=== PATIENT | male | born 1960 | race Caucasian/White ===

== ENCOUNTER 2016-08-25 07:06 | Emergency (ER) | payer MEDICAID ==
[~2016-08-25] VITALS: Ht 170.2 cm; Wt 86.2 kg
[~2016-08-25 07:06] MED LIST: ALL100T PO; LOS50T GT; PRED-188 PO; TAMS0.4C36 PO; TRAM100T37 PO
[2016-08-25 08:49] VITALS: BP 150/96
== END 2016-08-25 09:25 | disposition home or self-care (01) ==
LOC: ER 07:08
DX: J20.9 Acute bronchitis, unspecified (principal); M10.9 Gout, unspecified; M19.90 Unspecified osteoarthritis, unspecified site; I12.0 Hypertensive chronic kidney disease with stage 5 chronic kidney disease or end stage renal disease; N18.6 End stage renal disease

== ENCOUNTER 2016-10-09 20:32 | Inpatient (IN) | payer MEDICAID ==
[~2016-10-09] VITALS: Ht 170.2 cm; Wt 81.5 kg
[~2016-10-09 20:32] MED LIST changes: +EPINEPHrine HCL 1 MG/10 ML SYRG IV ONE; +LIDOCAINE HCL 100 MG/5ML (2%) SYRG INJ IV ONE; +SODIUM BICARBONATE 8.4% INJ 50ML SYRINGE IV ONE
[2016-10-09] MEDS ORDERED: ETOMIDATE (2MG/ML) 20ML VIAL IV ONE ×2 (21:29→23:00)
[2016-10-09] MEDS ORDERED: SUCCINYLCHOLINE CHLORIDE 20 MG/ML 10ML VIAL IV ONE ×2 (21:29→23:00)
[2016-10-09] MEDS ORDERED: MIDAZOLAM DRIP 100 mg/100mL NS 100 ML IV ONE (21:31)
[2016-10-09 21:38] VITALS: BP 155/87
[2016-10-09 21:43] LABS: Basophils # (auto) 0 uL; Basophils % (auto) 0.6 % (0.0-2.0); Eosinophils # (auto) 0.1 uL; Hematocrit 51.2 % (41.0-53.0); Hemoglobin 16.5 g/dL (13.5-17.5); Lymphocytes % (auto) 25.3 % (10.0-50.0); Mean Corpuscular Hemoglobin 27.9 pg (28.0-32.0); Mean Corpuscular Hgb Conc. 32.2 g/dL (32.0-36.0); Mean Corpuscular Volume 86.7 fL (80.0-100.0); Mean Platelet Volume 9.5 fL (7.4-10.4); Monocytes # (auto) 0.6 uL; Monocytes % (auto) 8.2 % (0.0-12.0); Neutrophils % (auto) 64.9 % (37.0-80.0); Platelet Count (auto) 286 10^3/uL (140-450); White Blood Cell 7.7 10^3/uL (4.4-10.8)
[2016-10-09] MEDS ORDERED: LIDOCAINE W/ EPINEPHRINE 1% 20ML VIAL ONE (21:46)
[2016-10-09] MEDS ORDERED: ANGIOMAX 250 MG VIAL IV ONE (21:55)
[2016-10-09] MEDS ORDERED: EPINEPHrine HCL 1 MG/10 ML SYRG ONE (21:56)
[2016-10-09] MEDS ORDERED: SODIUM CHL 0.9% 50 ML ONE ×2 (21:56→22:31)
[2016-10-09] MEDS ORDERED: ATROPINE SULF 0.5 MG/5ML SYR ONE (21:56)
[2016-10-09] MEDS ORDERED: DOPamine 1600MCG/ML 250 ML IV ONE (21:56)
[2016-10-09] MEDS ORDERED: EPTIFIBATIDE INJ (2MG/ML) 10ML VIAL IV ONE (21:56)
[2016-10-09 22:01] LABS: Albumin 4.2 g/dL (3.4-5.0); Bilirubin, Total 1.1 mg/dL (0.2-1.0); Calcium 9.4 mg/dL (8.5-10.1); Potassium 3.9 mmol/L (3.5-5.1); Total Protein 7.6 g/dL (6.4-8.2)
[2016-10-09] MEDS ORDERED: IODIXANOL 320MG/ML 100ML BTL IV ONE (22:07)
[2016-10-09] MEDS ORDERED: LIDOCAINE 2%HCL (LOCAL ANESTH.) INJ 20ML MDV ONE (22:07)
[2016-10-09] MEDS ORDERED: AMIODARONE HCL (50 MG/ ML) 3 ML VIAL IV ONE (22:30)
[2016-10-09] MEDS ORDERED: PRASUGREL HCL 10 MG TAB ONE (22:38)
[2016-10-09] MEDS ORDERED: MIDAZOLAM INJECTION 20 MG in SODIUM CHL 0.9% 36 ML IV ONE (23:00)
[2016-10-09] MEDS ORDERED: HEPARIN 1,000 UNITS/ml 1ML VIAL IV ONE (23:00)
[2016-10-09] MEDS ORDERED: MORPHINE SULF INJ 2 MG/ML SYRINGE 1ML IV PRN (23:00)
[2016-10-09] MEDS ORDERED: NITROGLYCERIN 0.4 MG SL TAB SL PRN (23:00)
[2016-10-09] MEDS ORDERED: LIDOCAINE 50MG/5ML INJ 5ML SYRINGE IV ONE ×2 (23:00→23:15)
[2016-10-09] MEDS ORDERED: ASPirin 81 mg TAB PO ONE (23:00)
[2016-10-09] MEDS ORDERED: PROPOFOL 100 ML IV ONE (23:38)
[2016-10-10] VITALS (100 sets, daily range): BP systolic 94–148; BP diastolic 48–113
[2016-10-10] MEDS ORDERED: METO-169 PO (03:36)
[2016-10-10] MEDS ORDERED: LOVA20TA4 PO (03:36)
[2016-10-10] MEDS ORDERED: AML5T PO (03:36)
[2016-10-10] MEDS ORDERED: METH750T3 PO ×2 (03:36)
[2016-10-10] MEDS ORDERED: GEMF600T3 PO (03:36)
[2016-10-10] MEDS ORDERED: FEBU80TA PO (03:36)
[2016-10-10] MEDS: PROPOFOL 100 ML IV SCH ×3 (05:06→18:47)
[2016-10-10] MEDS: DOPamine 1600MCG/ML 250 ML IV SCH ×2 (05:06→16:39)
[2016-10-10 06:48] LABS: Basophils # (auto) 0 uL; Basophils % (auto) 0.1 % (0.0-2.0); Eosinophils # (auto) 0 uL; Eosinophils % (auto) 0.3 % (0.0-7.0); Hematocrit 49.1 % (41.0-53.0); Hemoglobin 15.9 g/dL (13.5-17.5); Lymphocytes # (auto) 0.7 uL; Lymphocytes % (auto) 8.7 % (10.0-50.0); Mean Corpuscular Hgb Conc. 32.3 g/dL (32.0-36.0); Mean Corpuscular Volume 86.6 fL (80.0-100.0); Mean Platelet Volume 9.2 fL (7.4-10.4); Monocytes % (auto) 12.5 % (0.0-12.0); Neutrophils # (auto) 6.3 uL; Neutrophils % (auto) 78.4 % (37.0-80.0); Platelet Count (auto) 277 10^3/uL (140-450); White Blood Cell 8.1 10^3/uL (4.4-10.8)
[2016-10-10 07:09] LABS: Albumin 3.4 g/dL (3.4-5.0); Calcium 8.6 mg/dL (8.5-10.1); Magnesium 2.5 mg/dL (1.6-2.6); Potassium 3.5 mmol/L (3.5-5.1)
[2016-10-10 07:25] LABS: Bilirubin, Total 0.8 mg/dL (0.2-1.0); Total Protein 6.4 g/dL (6.4-8.2)
[2016-10-10] MEDS: PRASUGREL HCL 10 MG TAB PO SCH (09:25)
[2016-10-10] MEDS: ASPirin 81 mg TAB PO SCH (09:25)
[2016-10-10] MEDS: AMIODARONE HCL 200 MG TAB PO SCH ×2 (09:26→21:36)
[2016-10-10] MEDS ORDERED: MIDAZOLAM HCL 1MG/1ML-2 ML VIAL IV ONE (12:45)
[2016-10-10] MEDS ORDERED: ACETYLCYSTEINE 10 %(100MG/ML) SOL 4ML NEB SCH (14:00)
[2016-10-10] MEDS ORDERED: LOSA25TA9 PO (14:21)
[2016-10-10] MEDS ORDERED: ACE3T PO (14:26)
[2016-10-10] MEDS ORDERED: ACETYLCYSTEINE 10 %(100MG/ML) SOL 4ML ONE (14:40)
[2016-10-10] MEDS: ALBUTEROL SULF 2.5 MG/0.5ML(0.5%) NEB SOLN NEB SCH ×3 (15:03→22:27)
[2016-10-10] MEDS: IPRATROPIUM BROM 0.5 MG/2.5ML INH SOL NEB SCH ×3 (15:03→22:25)
[2016-10-10] MEDS ORDERED: ACETAMINOPHEN 500 MG TAB PO PRN (17:00)
[2016-10-10] MEDS ORDERED: CARVEDILOL 3.125 MG TAB PO ONE (17:15)
[2016-10-10] MEDS ORDERED: ARTIFICIAL TEARS 15ml EACHEYE PRN (18:15)
[2016-10-10] MEDS: TAMSULOSIN HYDROCHLORIDE 0.4 MG CAP PO SCH (18:59)
[2016-10-10] MEDS ORDERED: LISINOPRIL 5 MG TAB PO ONE (19:15)
[2016-10-10] MEDS ORDERED: ALLOPURINOL 100 MG TAB PO ONE (19:15)
[2016-10-10] MEDS: ATORVASTATIN 20 MG TAB PO SCH (21:36)
[2016-10-10] MEDS: CARVEDILOL 3.125 MG TAB PO SCH (22:00)
[2016-10-10] MEDS: ACETYLCYSTEINE ORAL for CIN 20%(200MG/ML) 4ML PO SCH (22:02)
[2016-10-10] MEDS: ACETYLCYSTEINE 10 %(100MG/ML) SOL 4ML NEB SCH (22:28)
[2016-10-11] VITALS (44 sets, daily range): BP systolic 89–125; BP diastolic 51–81
[2016-10-11] MEDS: ALBUTEROL SULF 2.5 MG/0.5ML(0.5%) NEB SOLN NEB SCH ×6 (02:50→22:31)
[2016-10-11] MEDS: IPRATROPIUM BROM 0.5 MG/2.5ML INH SOL NEB SCH ×6 (02:50→22:31)
[2016-10-11 03:48] LABS: Basophils # (auto) 0 uL; Basophils % (auto) 0.4 % (0.0-2.0); Eosinophils # (auto) 0.1 uL; Hematocrit 44.5 % (41.0-53.0); Hemoglobin 14.5 g/dL (13.5-17.5); Lymphocytes # (auto) 1.2 uL; Lymphocytes % (auto) 14.6 % (10.0-50.0); Mean Corpuscular Hemoglobin 28.5 pg (28.0-32.0); Mean Corpuscular Hgb Conc. 32.6 g/dL (32.0-36.0); Mean Corpuscular Volume 87.4 fL (80.0-100.0); Mean Platelet Volume 9.2 fL (7.4-10.4); Monocytes # (auto) 0.9 uL; Monocytes % (auto) 10.9 % (0.0-12.0); Neutrophils # (auto) 6.2 uL; Neutrophils % (auto) 73.1 % (37.0-80.0); Platelet Count (auto) 231 10^3/uL (140-450); Red Cell Distribution Width 13.2 % (11.6-16.0); White Blood Cell 8.4 10^3/uL (4.4-10.8)
[2016-10-11 04:26] LABS: Albumin 3.2 g/dL (3.4-5.0); BUN/Creatinine Ratio 15.2; Bilirubin, Total 0.8 mg/dL (0.2-1.0); Calcium 8.3 mg/dL (8.5-10.1); Potassium 3.8 mmol/L (3.5-5.1)
[2016-10-11] MEDS: ACETYLCYSTEINE 10 %(100MG/ML) SOL 4ML NEB SCH ×3 (06:50→22:31)
[2016-10-11] MEDS: DOPamine 1600MCG/ML 250 ML IV SCH (07:18)
[2016-10-11] MEDS: PRASUGREL HCL 10 MG TAB PO SCH (09:27)
[2016-10-11] MEDS: AMIODARONE HCL 200 MG TAB PO SCH ×2 (09:28→21:51)
[2016-10-11] MEDS: ASPirin 81 mg TAB PO SCH (09:28)
[2016-10-11] MEDS: LISINOPRIL 5 MG TAB PO SCH (10:00)
[2016-10-11] MEDS: CARVEDILOL 3.125 MG TAB PO SCH ×2 (10:00→21:52)
[2016-10-11] MEDS: ACETYLCYSTEINE ORAL for CIN 20%(200MG/ML) 4ML PO SCH ×2 (10:00→21:53)
[2016-10-11] MEDS ORDERED: ALLOPURINOL 100 MG TAB PO SCH (10:00)
[2016-10-11] MEDS: TAMSULOSIN HYDROCHLORIDE 0.4 MG CAP PO SCH (18:00)
[2016-10-11] MEDS: ATORVASTATIN 20 MG TAB PO SCH (21:51)
[2016-10-12] MEDS: ALBUTEROL SULF 2.5 MG/0.5ML(0.5%) NEB SOLN NEB SCH ×3 (01:58→10:43)
[2016-10-12] MEDS: IPRATROPIUM BROM 0.5 MG/2.5ML INH SOL NEB SCH ×3 (01:58→10:43)
[2016-10-12 05:00] VITALS: BP 112/66
[2016-10-12 06:06] LABS: Potassium 4.1 mmol/L (3.5-5.1)
[2016-10-12 06:08] LABS: BUN/Creatinine Ratio 13.4
[2016-10-12] MEDS: ACETYLCYSTEINE 10 %(100MG/ML) SOL 4ML NEB SCH (07:13)
[2016-10-12 08:48] VITALS: BP 129/71
[2016-10-12] MEDS ORDERED: COLCPOW2 PO (09:03)
[2016-10-12] MEDS: PRASUGREL HCL 10 MG TAB PO SCH (09:29)
[2016-10-12] MEDS: ASPirin 81 mg TAB PO SCH (09:29)
[2016-10-12] MEDS: CARVEDILOL 3.125 MG TAB PO SCH (09:30)
[2016-10-12] MEDS ORDERED: COLCHICINE 0.6 MG TAB/CAP PO ONE (09:30)
[2016-10-12] MEDS: AMIODARONE HCL 200 MG TAB PO SCH (09:30)
[2016-10-12] MEDS: LISINOPRIL 5 MG TAB PO SCH (09:31)
[2016-10-12] MEDS ORDERED: [UNRECOGNIZED DRUG - OTHER] PO SCH (10:00)
[2016-10-12] MEDS ORDERED: PATIENTS OWN MEDICATION PO SCH ×2 (10:00)
[2016-10-12] MEDS: ACETYLCYSTEINE ORAL for CIN 20%(200MG/ML) 4ML PO SCH (10:00)
[2016-10-12 12:17] VITALS: BP 129/71
[2016-10-12 13:00] VITALS: BP 135/79
== END 2016-10-12 14:00 | disposition home or self-care (01) | DRG 174 ==
LOC: ER 20:34 → CATH 1 21:47 → ICU WEST 21:48 → TELE-CENTR 10-11 11:40
PROVIDERS: ADMIT Internal Medicine; ATTEND Internal Medicine
PROC: 027034Z Dilation of Coronary Artery, One Artery with Drug-eluting Intraluminal Device, Percutaneous Approach (ICD-10-PCS; 2016-10-09)
PROC: 5A12012 Performance of Cardiac Output, Single, Manual (ICD-10-PCS; 2016-10-09)
PROC: B2111ZZ Fluoroscopy of Multiple Coronary Arteries using Low Osmolar Contrast (ICD-10-PCS; 2016-10-09)
PROC: 4A023N7 Measurement of Cardiac Sampling and Pressure, Left Heart, Percutaneous Approach (ICD-10-PCS; 2016-10-09)
PROC: B41F1ZZ Fluoroscopy of Right Lower Extremity Arteries using Low Osmolar Contrast (ICD-10-PCS; 2016-10-09)
PROC: 5A1935Z Respiratory Ventilation, Less than 24 Consecutive Hours (ICD-10-PCS; principal; 2016-10-10)
PROC: 0BH17EZ Insertion of Endotracheal Airway into Trachea, Via Natural or Artificial Opening (ICD-10-PCS; 2016-10-10)
DX: I21.3 ST elevation (STEMI) myocardial infarction of unspecified site (principal); J96.01 Acute respiratory failure with hypoxia; I49.01 Ventricular fibrillation; N17.9 Acute kidney failure, unspecified; I95.9 Hypotension, unspecified; N18.6 End stage renal disease; E66.01 Morbid (severe) obesity due to excess calories; I13.11 Hypertensive heart and chronic kidney disease without heart failure, with stage 5 chronic kidney disease, or end stage renal disease; I48.91 Unspecified atrial fibrillation; I46.9 Cardiac arrest, cause unspecified; I25.10 Atherosclerotic heart disease of native coronary artery without angina pectoris; E78.5 Hyperlipidemia, unspecified; M10.9 Gout, unspecified; Z68.29 Body mass index [BMI] 29.0-29.9, adult; E78.00 Pure hypercholesterolemia, unspecified; J45.909 Unspecified asthma, uncomplicated; M19.90 Unspecified osteoarthritis, unspecified site; N40.0 Benign prostatic hyperplasia without lower urinary tract symptoms; Z82.49 Family history of ischemic heart disease and other diseases of the circulatory system; Z83.3 Family history of diabetes mellitus; Z86.79 Personal history of other diseases of the circulatory system; Z95.5 Presence of coronary angioplasty implant and graft; Z68.28 Body mass index [BMI] 28.0-28.9, adult; Z85.9 Personal history of malignant neoplasm, unspecified; Z71.89 Other specified counseling; Z88.8 Allergy status to other drugs, medicaments and biological substances
CPT/HCPCS: 31500; 51702; 92928; 92950; 93458; 96365; 96375; 99291; G0278; 36415; 36600; 71010; 80048; 80053; 80061; 82805; 82962; 83036; 83735; 84484; 85025; 87081; 93005; 93306; 94002; 94003; 94640; 99152; C1874; J0330; J0461; J2250; J2704; Q9967

== ENCOUNTER 2017-11-18 09:42 | Emergency (ER) | payer MEDICAID ==
[~2017-11-18] VITALS: Ht 172.7 cm; Wt 85.3 kg
[~2017-11-18 09:42] MED LIST changes: +ACE3T PO; -ALL100T PO; +ASPI81CH43 GT; +ATOR40TA52 PO; +COLCPOW2 PO; -EPINEPHrine HCL 1 MG/10 ML SYRG IV ONE; +FEBU80TA PO; +GEMF600T3 PO; -LIDOCAINE HCL 100 MG/5ML (2%) SYRG INJ IV ONE; +LORA-622 PO; -LOS50T GT; +LOSA25TA9 PO; +LOVA20TA4 PO; +PRAS10TA6 PO; -SODIUM BICARBONATE 8.4% INJ 50ML SYRINGE IV ONE; -TRAM100T37 PO
[2017-11-18 10:41] LABS: Basophils # (auto) 0 uL; Basophils % (auto) 0.4 % (0.0-2.0); Eosinophils # (auto) 0 uL; Eosinophils % (auto) 0.2 % (0.0-7.0); Hematocrit 50.5 % (41.0-53.0); Hemoglobin 17.1 g/dL (13.5-17.5); Lymphocytes # (auto) 0.8 uL; Lymphocytes % (auto) 10.4 % (10.0-50.0); Mean Corpuscular Hemoglobin 29.5 pg (28.0-32.0); Mean Corpuscular Hgb Conc. 33.9 g/dL (32.0-36.0); Mean Corpuscular Volume 87.1 fL (80.0-100.0); Monocytes # (auto) 0.4 uL; Monocytes % (auto) 4.6 % (0.0-12.0); Neutrophils # (auto) 6.4 uL; Neutrophils % (auto) 84.4 % (37.0-80.0); Platelet Count (auto) 243 10^3/uL (140-450); Red Blood Cells 5.79 10^6/uL (4.5-5.90); Red Cell Distribution Width 13.3 % (11.8-14.3); White Blood Cell 7.6 10^3/uL (4.4-10.8)
[2017-11-18 10:59] LABS: Alanine Aminotransferase 29 U/L (16-61); Anion Gap 8 (5-15); Aspartate Aminotransferase 18 U/L (15-37); BUN/Creatinine Ratio 16.9; Blood Urea Nitrogen 27 mg/dL (7-18); Calcium 9.2 mg/dL (8.5-10.1); Carbon Dioxide 24 mmol/L (21-32); Chloride 112 mmol/L (98-107); GFR African American 57 mL/min; GFR Non-African American 47 mL/min; Glucose 128 mg/dL (74-106); Potassium 4.2 mmol/L (3.5-5.1); Sodium 144 mmol/L (136-145)
[2017-11-18 10:59] LABS: Urine Bacteria NONE SEEN /hpf (None Seen); Urine Blood Negative /uL (Negative); Urine Mucus FEW (None Seen); Urine Specific Gravity 1.023 (1.001-1.035); Urine WBC 2 /hpf (0 - 3)
[2017-11-18 11:02] LABS: Alkaline Phosphatase 86 U/L (45-117); Bilirubin, Total 1.3 mg/dL (0.2-1.0); Total Protein 7.4 g/dL (6.4-8.2)
[2017-11-18] MEDS ORDERED: SODIUM CHLORIDE 0.9% 1,000 ML IV ONE (17:12)
[2017-11-18] MEDS ORDERED: ACETAMINOPHEN 500 MG TAB PO ONE ×2 (22:25→22:30)
[2017-11-18 22:45] VITALS: BP 156/95
== END 2017-11-19 00:21 | disposition home or self-care (01) ==
LOC: ER 09:42
DX: R51 Headache (principal); I12.0 Hypertensive chronic kidney disease with stage 5 chronic kidney disease or end stage renal disease; N18.6 End stage renal disease; K21.9 Gastro-esophageal reflux disease without esophagitis; E78.5 Hyperlipidemia, unspecified; M10.9 Gout, unspecified; Z98.61 Coronary angioplasty status
CPT/HCPCS: 36415; 70450; 80053; 81001; 83735; 84443; 84484; 85025; 93005; 96360; 99285; J7030

== ENCOUNTER 2018-03-31 16:43 | Emergency (ER) | payer MEDICAID ==
[2018-03-31 17:28] LABS: Basophils # (auto) 0 uL; Basophils % (auto) 0.6 % (0.0-2.0); Eosinophils # (auto) 0.1 uL; Eosinophils % (auto) 1.5 % (0.0-7.0); Hematocrit 47.8 % (41.0-53.0); Hemoglobin 16.1 g/dL (13.5-17.5); Lymphocytes # (auto) 1.1 uL; Mean Corpuscular Hemoglobin 29.8 pg (28.0-32.0); Mean Corpuscular Hgb Conc. 33.6 g/dL (32.0-36.0); Mean Corpuscular Volume 88.7 fL (80.0-100.0); Monocytes # (auto) 0.5 uL; Monocytes % (auto) 8.4 % (0.0-12.0); Neutrophils # (auto) 4.2 uL; Neutrophils % (auto) 70.5 % (37.0-80.0); Platelet Count (auto) 202 10^3/uL (140-450); Red Blood Cells 5.39 10^6/uL (4.5-5.90); Red Cell Distribution Width 13.1 % (11.8-14.3)
[2018-03-31 17:46] LABS: Alanine Aminotransferase 28 U/L (16-61); Albumin 3.6 g/dL (3.4-5.0); Anion Gap 10 (5-15); Aspartate Aminotransferase 16 U/L (15-37); BUN/Creatinine Ratio 18.6; Blood Urea Nitrogen 32 mg/dL (7-18); Calcium 8.8 mg/dL (8.5-10.1); Carbon Dioxide 24 mmol/L (21-32); Chloride 115 mmol/L (98-107); GFR African American 53 mL/min; GFR Non-African American 44 mL/min; Glucose 96 mg/dL (74-106); Potassium 4.5 mmol/L (3.5-5.1); Sodium 149 mmol/L (136-145)
[2018-03-31 17:50] LABS: Alkaline Phosphatase 83 U/L (45-117); Bilirubin, Total 0.9 mg/dL (0.2-1.0)
[2018-03-31 23:30] VITALS: BP 137/88
== END 2018-04-01 00:45 | disposition left against medical advice (07) ==
LOC: ER 16:48
DX: R07.9 Chest pain, unspecified (principal); Z53.29 Procedure and treatment not carried out because of patient's decision for other reasons
CPT/HCPCS: 36415; 71045; 80053; 84484; 85025; 93005

== ENCOUNTER 2018-04-24 12:03 | Inpatient (IN) | payer MEDICAID ==
[~2018-04-24] VITALS: Ht 172.7 cm; Wt 87.4 kg
[2018-04-24] MEDS ORDERED: PANT20TA59 (12:29)
[2018-04-24 13:21] LABS: Urine Bacteria NONE SEEN /hpf (None Seen); Urine Blood Negative /uL (Negative); Urine Specific Gravity 1.015 (1.001-1.035); Urine WBC 1 /hpf (0 - 3)
[2018-04-24] MEDS ORDERED: KETOROLAC TROMETH 30 MG/ML 1ML VIAL IV ONE (13:30)
[2018-04-24] MEDS ORDERED: cefTRIAXone 1GM/10ml IVPUSH 10 ML IV ONE (13:30)
[2018-04-24 13:50] LABS: Basophils # (auto) 0 uL; Basophils % (auto) 0.5 % (0.0-2.0); Eosinophils # (auto) 0.1 uL; Eosinophils % (auto) 0.8 % (0.0-7.0); Hematocrit 47.2 % (41.0-53.0); Hemoglobin 16.2 g/dL (13.5-17.5); Lymphocytes # (auto) 0.8 uL; Lymphocytes % (auto) 10.6 % (10.0-50.0); Mean Corpuscular Hemoglobin 30.1 pg (28.0-32.0); Mean Corpuscular Hgb Conc. 34.3 g/dL (32.0-36.0); Mean Corpuscular Volume 87.8 fL (80.0-100.0); Monocytes # (auto) 0.8 uL; Monocytes % (auto) 10.3 % (0.0-12.0); Neutrophils # (auto) 5.9 uL; Neutrophils % (auto) 77.8 % (37.0-80.0); Platelet Count (auto) 187 10^3/uL (140-450); Red Blood Cells 5.38 10^6/uL (4.5-5.90); Red Cell Distribution Width 12.7 % (11.8-14.3); White Blood Cell 7.6 10^3/uL (4.4-10.8)
[2018-04-24 14:02] LABS: Alanine Aminotransferase 27 U/L (16-61); Albumin 3.7 g/dL (3.4-5.0); Anion Gap 10 (5-15); Aspartate Aminotransferase 15 U/L (15-37); BUN/Creatinine Ratio 13.9; Blood Urea Nitrogen 23 mg/dL (7-18); Calcium 8.8 mg/dL (8.5-10.1); Carbon Dioxide 25 mmol/L (21-32); Chloride 108 mmol/L (98-107); GFR African American 55 mL/min; GFR Non-African American 46 mL/min; Glucose 102 mg/dL (74-106); Potassium 3.7 mmol/L (3.5-5.1); Sodium 143 mmol/L (136-145)
[2018-04-24 14:10] LABS: Alkaline Phosphatase 83 U/L (45-117); Total Protein 7.4 g/dL (6.4-8.2)
[2018-04-24] MEDS ORDERED: ACETAMINOPHEN/CODEINE#3 (300/30mg) TAB PO PRN (16:30)
[2018-04-24] MEDS ORDERED: BACLOFEN 10 MG TAB PO PRN (16:45)
[2018-04-24] MEDS ORDERED: DOCUSATE SOD 100 MG CAP PO PRN (16:45)
[2018-04-24] MEDS ORDERED: ONDANSETRON HCL 4 MG/2 ML VIAL IV PRN (16:45)
[2018-04-24] MEDS ORDERED: TEMAZEPAM 15 MG CAP PO PRN (16:45)
[2018-04-24] MEDS: CLINDAMYCIN 300MG IV 50 ML IV SCH (21:55)
[2018-04-24] MEDS: ATORVASTATIN 20 MG TAB PO SCH (21:55)
[2018-04-24] MEDS: COLCHICINE 0.6 MG TAB PO SCH (21:55)
[2018-04-24] MEDS: SODIUM CHLOR 0.9% PF (SALINE LOCK) 10ML VIAL/SYR IV SCH (21:55)
[2018-04-24] MEDS: ASCORBIC ACID 500 MG TAB PO SCH (21:56)
[2018-04-24] MEDS: FAMOTIDINE 20 MG TAB PO SCH (21:56)
[2018-04-24 22:00] VITALS: BP 143/87
[2018-04-24] MEDS: MORPHINE SULF INJ 2 MG/ML SYRINGE 1ML IV PRN (22:15)
[2018-04-25] MEDS: ACETAMINOPHEN 325 MG TAB PO PRN ×2 (00:04→23:21)
[2018-04-25 05:20] VITALS: BP 128/72
[2018-04-25] MEDS: SODIUM CHLOR 0.9% PF (SALINE LOCK) 10ML VIAL/SYR IV SCH ×3 (05:52→22:56)
[2018-04-25] MEDS: CLINDAMYCIN 300MG IV 50 ML IV SCH ×3 (05:52→22:56)
[2018-04-25 05:57] LABS: Basophils # (auto) 0 uL; Basophils % (auto) 0.4 % (0.0-2.0); Eosinophils # (auto) 0.2 uL; Eosinophils % (auto) 1.9 % (0.0-7.0); Hematocrit 41.6 % (41.0-53.0); Hemoglobin 14.8 g/dL (13.5-17.5); Lymphocytes # (auto) 1.3 uL; Lymphocytes % (auto) 15.2 % (10.0-50.0); Mean Corpuscular Hgb Conc. 35.6 g/dL (32.0-36.0); Mean Corpuscular Volume 87.3 fL (80.0-100.0); Monocytes # (auto) 0.9 uL; Monocytes % (auto) 10.6 % (0.0-12.0); Neutrophils # (auto) 5.9 uL; Neutrophils % (auto) 71.9 % (37.0-80.0); Platelet Count (auto) 187 10^3/uL (140-450); Red Blood Cells 4.77 10^6/uL (4.5-5.90); Red Cell Distribution Width 12.8 % (11.8-14.3); White Blood Cell 8.3 10^3/uL (4.4-10.8)
[2018-04-25 06:25] LABS: Albumin 3.1 g/dL (3.4-5.0); BUN/Creatinine Ratio 14.1; Bilirubin, Total 0.7 mg/dL (0.2-1.0); Calcium 8.2 mg/dL (8.5-10.1); Potassium 3.8 mmol/L (3.5-5.1); Total Protein 6.2 g/dL (6.4-8.2)
[2018-04-25] MEDS: cefTRIAXone 1GM/10ml IVPUSH 10 ML IV SCH (09:02)
[2018-04-25] MEDS: MORPHINE SULF INJ 2 MG/ML SYRINGE 1ML IV PRN (09:03)
[2018-04-25 09:16] VITALS: BP 133/75
[2018-04-25] MEDS: LORATADINE 10 MG TAB PO SCH ×2 (10:00→10:25)
[2018-04-25] MEDS: FAMOTIDINE 20 MG TAB PO SCH ×3 (10:00→22:00)
[2018-04-25] MEDS: COLCHICINE 0.6 MG TAB PO SCH ×2 (10:00→22:00)
[2018-04-25] MEDS: PANTOPRAZOLE 40 MG TAB PO SCH ×2 (10:00→10:26)
[2018-04-25] MEDS: MULTIPLE VITAMIN TAB PO SCH (10:25)
[2018-04-25] MEDS: ZINC SULFATE 220mg CAP or TAB PO SCH (10:25)
[2018-04-25] MEDS: PRASUGREL HCL 10 MG TAB PO SCH (10:25)
[2018-04-25] MEDS: ASPirin-EC 81 mg tab PO SCH (10:25)
[2018-04-25] MEDS: CHOLECALCIFEROL (VITD3) 1,000 UNIT TAB PO SCH (10:26)
[2018-04-25] MEDS: ASCORBIC ACID 500 MG TAB PO SCH ×2 (10:26→22:00)
[2018-04-25] MEDS: LOSARTAN POTASSIUM 50 MG TAB PO SCH (10:26)
[2018-04-25 12:32] VITALS: BP 141/91
[2018-04-25] MEDS: ULORIC 80 MG PO SCH (12:50)
[2018-04-25 17:05] VITALS: BP 145/88
[2018-04-25 22:10] VITALS: BP 144/90
[2018-04-25] MEDS: ATORVASTATIN 20 MG TAB PO SCH (22:57)
[2018-04-25] MEDS: DAKINS QUARTER STR 0.125% (NaHypochlorite) 473 ML TOPICAL SOL TOP SCH (22:57)
[2018-04-25] MEDS: SILVER SULFADIAZINE 1 % TOPICAL CREAM 50GM TOP SCH (22:58)
[2018-04-26 05:00] VITALS: BP 143/91
[2018-04-26] MEDS: SODIUM CHLOR 0.9% PF (SALINE LOCK) 10ML VIAL/SYR IV SCH ×3 (06:08→22:52)
[2018-04-26] MEDS: CLINDAMYCIN 300MG IV 50 ML IV SCH ×3 (06:08→22:52)
[2018-04-26 06:40] LABS: Basophils # (auto) 0 uL; Basophils % (auto) 0.5 % (0.0-2.0); Eosinophils # (auto) 0.2 uL; Eosinophils % (auto) 2.3 % (0.0-7.0); Hematocrit 46.5 % (41.0-53.0); Hemoglobin 14.8 g/dL (13.5-17.5); Lymphocytes # (auto) 1.2 uL; Lymphocytes % (auto) 17.7 % (10.0-50.0); Mean Corpuscular Hemoglobin 29.7 pg (28.0-32.0); Mean Corpuscular Hgb Conc. 31.9 g/dL (32.0-36.0); Mean Corpuscular Volume 93.4 fL (80.0-100.0); Monocytes # (auto) 0.6 uL; Monocytes % (auto) 8.6 % (0.0-12.0); Neutrophils # (auto) 4.7 uL; Neutrophils % (auto) 70.9 % (37.0-80.0); Nucleated Red Blood Cells % 0.1 %; Platelet Count (auto) 179 10^3/uL (140-450); Red Blood Cells 4.98 10^6/uL (4.5-5.90); Red Cell Distribution Width 13.6 % (11.8-14.3); White Blood Cell 6.7 10^3/uL (4.4-10.8)
[2018-04-26 07:16] LABS: BUN/Creatinine Ratio 12.3; Calcium 8.4 mg/dL (8.5-10.1); Potassium 3.8 mmol/L (3.5-5.1)
[2018-04-26 09:00] VITALS: BP 140/83
[2018-04-26] MEDS: ULORIC 80 MG PO SCH (10:00)
[2018-04-26] MEDS: LORATADINE 10 MG TAB PO SCH (10:00)
[2018-04-26] MEDS: DAKINS QUARTER STR 0.125% (NaHypochlorite) 473 ML TOPICAL SOL TOP SCH ×2 (10:00→22:00)
[2018-04-26] MEDS: FAMOTIDINE 20 MG TAB PO SCH ×2 (10:00→22:00)
[2018-04-26] MEDS: COLCHICINE 0.6 MG TAB PO SCH ×2 (10:00→22:00)
[2018-04-26] MEDS: SILVER SULFADIAZINE 1 % TOPICAL CREAM 50GM TOP SCH ×2 (10:00→22:00)
[2018-04-26] MEDS: PANTOPRAZOLE 40 MG TAB PO SCH (10:00)
[2018-04-26] MEDS: CHOLECALCIFEROL (VITD3) 1,000 UNIT TAB PO SCH (10:56)
[2018-04-26] MEDS: cefTRIAXone 1GM/10ml IVPUSH 10 ML IV SCH (10:56)
[2018-04-26] MEDS: ZINC SULFATE 220mg CAP or TAB PO SCH (10:56)
[2018-04-26] MEDS: PRASUGREL HCL 10 MG TAB PO SCH (10:56)
[2018-04-26] MEDS: ASCORBIC ACID 500 MG TAB PO SCH ×2 (10:57→22:00)
[2018-04-26] MEDS: LOSARTAN POTASSIUM 50 MG TAB PO SCH (10:57)
[2018-04-26] MEDS: MULTIPLE VITAMIN TAB PO SCH (10:57)
[2018-04-26] MEDS: ASPirin-EC 81 mg tab PO SCH (10:57)
[2018-04-26 13:00] VITALS: BP 172/100
[2018-04-26 17:40] VITALS: BP 156/89
[2018-04-26 21:30] VITALS: BP 158/101
[2018-04-26] MEDS: ATORVASTATIN 20 MG TAB PO SCH (22:52)
[2018-04-27 05:00] VITALS: BP 129/83
[2018-04-27 06:20] LABS: Basophils # (auto) 0 uL; Basophils % (auto) 0.7 % (0.0-2.0); Eosinophils # (auto) 0.2 uL; Eosinophils % (auto) 2.7 % (0.0-7.0); Hematocrit 43.4 % (41.0-53.0); Lymphocytes # (auto) 1.1 uL; Lymphocytes % (auto) 17.8 % (10.0-50.0); Mean Corpuscular Hemoglobin 30.3 pg (28.0-32.0); Mean Corpuscular Hgb Conc. 34.6 g/dL (32.0-36.0); Mean Corpuscular Volume 87.5 fL (80.0-100.0); Monocytes # (auto) 0.6 uL; Monocytes % (auto) 9.2 % (0.0-12.0); Neutrophils # (auto) 4.4 uL; Neutrophils % (auto) 69.6 % (37.0-80.0); Platelet Count (auto) 192 10^3/uL (140-450); Red Blood Cells 4.96 10^6/uL (4.5-5.90); Red Cell Distribution Width 12.9 % (11.8-14.3); White Blood Cell 6.3 10^3/uL (4.4-10.8)
[2018-04-27 06:25] LABS: BUN/Creatinine Ratio 12.4; Calcium 8.9 mg/dL (8.5-10.1)
[2018-04-27] MEDS: SODIUM CHLOR 0.9% PF (SALINE LOCK) 10ML VIAL/SYR IV SCH (06:35)
[2018-04-27] MEDS: CLINDAMYCIN 300MG IV 50 ML IV SCH (06:35)
[2018-04-27 08:13] VITALS: BP 137/90
[2018-04-27] MEDS: PANTOPRAZOLE 40 MG TAB PO SCH (09:32)
[2018-04-27] MEDS: cefTRIAXone 1GM/10ml IVPUSH 10 ML IV SCH (09:32)
[2018-04-27] MEDS: ASCORBIC ACID 500 MG TAB PO SCH (09:33)
[2018-04-27] MEDS: MULTIPLE VITAMIN TAB PO SCH (09:33)
[2018-04-27] MEDS: FAMOTIDINE 20 MG TAB PO SCH (09:33)
[2018-04-27] MEDS: CHOLECALCIFEROL (VITD3) 1,000 UNIT TAB PO SCH (09:33)
[2018-04-27] MEDS: LORATADINE 10 MG TAB PO SCH (09:34)
[2018-04-27] MEDS: COLCHICINE 0.6 MG TAB PO SCH (09:34)
[2018-04-27] MEDS: ZINC SULFATE 220mg CAP or TAB PO SCH (09:34)
[2018-04-27] MEDS: LOSARTAN POTASSIUM 50 MG TAB PO SCH (09:34)
[2018-04-27] MEDS: ASPirin-EC 81 mg tab PO SCH (09:35)
[2018-04-27] MEDS: ULORIC 80 MG PO SCH (10:02)
[2018-04-27] MEDS: PRASUGREL HCL 10 MG TAB PO SCH (10:02)
[2018-04-27] MEDS: DAKINS QUARTER STR 0.125% (NaHypochlorite) 473 ML TOPICAL SOL TOP SCH (10:03)
[2018-04-27 11:38] VITALS: BP 145/88
== END 2018-04-27 12:02 | disposition home or self-care (01) | DRG 383 ==
LOC: ER 12:03 → OVERFLOW 12:04 → WEST WING 17:31
PROVIDERS: ADMIT Internal Medicine; ATTEND Internal Medicine
PROC: 0JBQ0ZZ Excision of Right Foot Subcutaneous Tissue and Fascia, Open Approach (ICD-10-PCS; principal; 2018-04-26)
DX: L03.115 Cellulitis of right lower limb (principal); S91.311A Laceration without foreign body, right foot, initial encounter; N18.3 Chronic kidney disease, stage 3 (moderate); Z98.61 Coronary angioplasty status; I25.2 Old myocardial infarction; I25.10 Atherosclerotic heart disease of native coronary artery without angina pectoris; I12.9 Hypertensive chronic kidney disease with stage 1 through stage 4 chronic kidney disease, or unspecified chronic kidney disease; E78.5 Hyperlipidemia, unspecified; G89.29 Other chronic pain; M10.9 Gout, unspecified; M19.90 Unspecified osteoarthritis, unspecified site; M54.2 Cervicalgia; W22.03XA Walked into furniture, initial encounter; Z88.8 Allergy status to other drugs, medicaments and biological substances; Z82.49 Family history of ischemic heart disease and other diseases of the circulatory system; Z83.3 Family history of diabetes mellitus; Y93.89 Activity, other specified; Y92.89 Other specified places as the place of occurrence of the external cause; Y99.8 Other external cause status
CPT/HCPCS: 36415; 71046; 73630; 80048; 80053; 81001; 83605; 84484; 85025; 87040; 87077; 87186; 87205; 93005; 93306; 94761; 96374; 96375; 96376; J0696; J1885; J3490

== ENCOUNTER 2024-02-21 17:37 | Emergency (ER) | payer MEDICAID ==
[~2024-02-21] VITALS: Ht 170.2 cm; Wt 86.8 kg
[~2024-02-21 17:37] MED LIST changes: -GEMF600T3 PO; +LOSA-533 PO; -LOSA25TA9 PO; +PANT20TA59; +PRAS10TA19 PO; -PRAS10TA6 PO
[2024-02-21] MEDS ORDERED: METH-1181 PO (21:41)
[2024-02-21] MEDS ORDERED: IBUP-1455 PO (21:41)
[2024-02-21] MEDS: KETOROLAC TROMETH 60MG/2ML VIAL IM ONE (22:19)
[2024-02-21 22:21] VITALS: BP 143/93; PULSE 82; RESP 17; TEMP 97.3; O2SAT 97
== END 2024-02-21 22:22 | disposition home or self-care (01) ==
LOC: ER 17:37
DX: G44.209 Tension-type headache, unspecified, not intractable (principal); I10 Essential (primary) hypertension; I25.2 Old myocardial infarction; I25.10 Atherosclerotic heart disease of native coronary artery without angina pectoris; M19.90 Unspecified osteoarthritis, unspecified site; E78.5 Hyperlipidemia, unspecified; M10.9 Gout, unspecified; Z98.890 Other specified postprocedural states; Z88.8 Allergy status to other drugs, medicaments and biological substances; Z79.899 Other long term (current) drug therapy
CPT/HCPCS: 70450; J1885